=== PATIENT | male | born 1955 | race Caucasian/White ===

== ENCOUNTER → 2024-04-12 | Outpatient (CLI) | payer MEDICARE ==
--- NOTE | 2024-04-12 11:06 | XR ---
EXAMINATION TYPE: XR KUB DATE OF EXAM: 04/12/2024 9:35 AM CLINICAL INDICATION: Male, 68 years old with history of [id number] LBP; [facility] COMPARISON: None. TECHNIQUE: One radiographic view of the abdomen was obtained. FINDINGS: The bowel gas pattern is nonspecific without dilated loops of small or large bowel. . Fecal material and gas are demonstrated throughout the colon and rectum. There is no evidence for organomegaly or pneumoperitoneum. The osseous structures are intact. No ab normal calcifications are present. With joint space tearing mass effect relation the hips. Multilevel degeneration changes spine with osteophyte formation. Tubing projects throughout the abdomen. IMPRESSION: 1. No evidence for acute process. 2. 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 Nonspecific bowel gas pattern without radiographic evidence for acute process.
== END | disposition home or self-care (01) ==
LOC: RADXRYALE 09:16
PROVIDERS: ATTEND Internal Medicine
DX: M54.51 Vertebrogenic low back pain (principal)
CPT/HCPCS: 74018